=== PATIENT | female | born 1975 | race Caucasian/White ===

== ENCOUNTER 2023-02-22 09:48 | Outpatient (CLI) | payer BC, SELFPAY | END 2023-02-22 09:49 | disposition home or self-care (01) | LOC: CHSAUDIO 09:52 | PROVIDERS: PCP Physician Assistant; Visit Provider Physician Assistant | DX: H90.3 Sensorineural hearing loss, bilateral (principal) | CPT/HCPCS: 92557; 92567 ==

== ENCOUNTER 2024-07-14 08:25 | Outpatient (CLI) | payer OTHER, SELFPAY ==
--- NOTE | ~2024-07-14 | CT_ITS ---
EXAMINATION: CTA BRAIN/CAROTID DATE: 07/14/2024 10:18 INDICATION: Vertigo TECHNIQUE: Computed tomographic angiography (CTA) of the head and neck was performed with 100 mL Omni paque-350 intravenous contrast. Multiplanar reconstructions and maximum intensity projection 3D-recon structions of the carotid arteries and of the intracranial arteries were created by the technologist on a separate workstation. Precontrast CT of the head was also obtained. Automated exposure control and iterative reconstruction technique were employed.The dose-length product was 1507.88 mGy-cm. COMPARISON: None. FINDINGS: Carotid arteries: Visualized aortic arch and great vessel arising from the arch are normal in caliber with no evident a therosclerotic plaque or dissection. There is no evident atherosclerotic plaque with 0% stenosis of t he right and left carotid bulbs relative to normal distal artery lumen diameter (NASCET criteria). Le ft vertebral artery is dominant. Cervical soft tissues are unremarkable. Visualized apices of lungs a re clear. Moderate lower cervical spondylosis. Head: No acute intracranial hemorrhage, acute infarction or abnormal extra axial fluid collection. Ventricl es are normal and symmetric. No mass/mass effect. No abnormally enhancing brain lesions. The orbits, paranasal sinuses and mastoid air cells are normal. Intracranial arteries Left vertebral artery is dominant. There is no hemodynamically significant stenosis in the vertebral, basilar and internal carotid arteries. Vertebral arteries are codominant. There are no aneurysms jose ntified. Both A1 and P1 segments are patent. There there are patent anterior communicating and left posterior communicating arteries. Cerebral arterial arborization appears symmetric. IMPRESSION: 1. No evident atherosclerotic plaque with 0% stenosis of the right and left carotid bulbs relative to normal distal artery lumen diameter (NASCET criteria). 2. Unremarkable cerebral CT angiogram with no evidence stenosis, thrombosis or aneurysm. 2. Normal head CT with no acute intracranial process or abnormally enhancing brain lesions. Reviewed, dictated and finalized at location B. IMPRESSION: 1. No evident atherosclerotic plaque with 0% stenosis of the right and left car otid bulbs relative to normal distal artery lumen diameter (NASCET criteria). 2. Unremarkable cerebral CT angiogram with no evidence stenosis, thrombosis or aneurysm. 2. Normal head CT with no acute intracranial process or abnormally enhancing br ain lesions.
== END 2024-07-14 08:26 | disposition home or self-care (01) ==
PROVIDERS: PCP Physician Assistant; Visit Provider Physician Assistant
DX: R51.9 Headache, unspecified (principal); R42 Dizziness and giddiness
CPT/HCPCS: 70496; 70498; Q9967